=== PATIENT | male | born 1985 | race Caucasian/White ===

== ENCOUNTER → 2016-12-17 | Outpatient (REF) | payer BC | LOC: M LAB REF 12:34 | PROVIDERS: ATTEND Internal Medicine | DX: D51.9 Vitamin B12 deficiency anemia, unspecified (principal) ==

== ENCOUNTER → 2018-10-02 | Outpatient (REF) | payer BC | LOC: M LAB REF 16:32 | PROVIDERS: ATTEND Physician Assistant | DX: J02.9 Acute pharyngitis, unspecified (principal) ==

== ENCOUNTER → 2019-10-01 | Outpatient (REF) | payer BC ==
[2019-10-04 14:07] LABS: TESTOSTERONE FREE (DIRECT) 8.1 pg/mL (8.7-25.1)
== END ==
LOC: M LAB REF 16:52
PROVIDERS: ATTEND Internal Medicine
DX: N52.9 Male erectile dysfunction, unspecified (principal)

== ENCOUNTER → 2023-06-12 | Outpatient (CLI) | payer OTHER | LOC: M WUC 15:14 | PROVIDERS: ATTEND Internal Medicine | DX: M54.2 Cervicalgia (principal) ==

== ENCOUNTER → 2023-07-04 | Outpatient (REF) | payer OTHER | LOC: M SMT 12:44 | PROVIDERS: ATTEND Urology | DX: Z30.2 Encounter for sterilization (principal) ==

== ENCOUNTER → 2023-09-25 | Outpatient (REF) | payer OTHER ==
[2023-09-25 14:04] LABS: SEMEN APPEARANCE OPAQUE (OPAQUE); SEMEN VISCOSITY LIQUID (LIQUID); SEMEN VOLUME 2.8 ml (2.0-5.0)
[2023-09-25 14:05] LABS: WBC CONCENTRATION <=1 M/ml (<=1 M/ml)
== END ==
LOC: M SMT 13:32
PROVIDERS: ATTEND Urology
DX: Z30.8 Encounter for other contraceptive management (principal)

== ENCOUNTER → 2025-08-02 | Outpatient (REF) | payer OTHER ==
[2025-08-05 20:37] LABS: LYME TOTAL ANTIBODY CIA <= 0.90 Index (<=0.90)
[2025-08-06 08:48] LABS: BORRELIA SPECIES DNA NOT DETECTED (NOT DETECT)
== END ==
LOC: M LAB REF 12:05
PROVIDERS: ATTEND Internal Medicine
DX: M25.50 Pain in unspecified joint (principal)